=== PATIENT | female | born 1965 | race Two or more races ===

== ENCOUNTER 2020-12-10 05:46 | Day surgery (SDC) | payer OTHER ==
[~2020-12-10 05:46] MED LIST: CRESTOR20 MG PO; D3 + K2 DOTS 11 EACH PO; SYMBICORT 16010.2 GM IH; SYNTHROID100 MCG PO
[2020-12-10] MEDS ORDERED: PERCOCET 5-3251 EACH PO (08:58)
== END 2020-12-10 13:15 | disposition home or self-care (01) ==
LOC: CIR.AMB 05:46
PROVIDERS: ATTEND Obstetrics & Gynecology Gynecology
DX: D06.0 Carcinoma in situ of endocervix (principal); N84.0 Polyp of corpus uteri; Z20.822 Contact with and (suspected) exposure to COVID-19

== ENCOUNTER 2021-04-03 10:30 | Inpatient (IN) | payer OTHER ==
[~2021-04-03] VITALS: Ht 165.1 cm; Wt 68.0 kg
[~2021-04-03 10:30] MED LIST changes: +PERCOCET 5-3251 EACH PO
[2021-04-03] MEDS ORDERED: SYNTHROID125 MCG PO (12:47)
[2021-04-03] MEDS ORDERED: SYMB PO (12:48)
[2021-04-05] MEDS ORDERED: SYMBICORT 16010.2 GM (08:25)
== END 2021-04-05 10:52 | disposition home or self-care (01) | DRG 735 ==
LOC: O/R 04-04 06:17 → OB/GYN 04-04 10:30 → SURG-SUITE 04-05 08:12
PROVIDERS: ADMIT Obstetrics & Gynecology Gynecologic Oncology; ATTEND Obstetrics & Gynecology Gynecologic Oncology
PROC: 0UT94ZZ Resection of Uterus, Percutaneous Endoscopic Approach (ICD-10-PCS; 2021-04-04)
PROC: 0UT74ZZ Resection of Bilateral Fallopian Tubes, Percutaneous Endoscopic Approach (ICD-10-PCS; 2021-04-04)
PROC: 0UT24ZZ Resection of Bilateral Ovaries, Percutaneous Endoscopic Approach (ICD-10-PCS; 2021-04-04)
PROC: 0DNW4ZZ Release Peritoneum, Percutaneous Endoscopic Approach (ICD-10-PCS; 2021-04-04)
PROC: 07TC4ZZ Resection of Pelvis Lymphatic, Percutaneous Endoscopic Approach (ICD-10-PCS; principal; 2021-04-04 12:15)
DX: N72 Inflammatory disease of cervix uteri (principal); Z20.822 Contact with and (suspected) exposure to COVID-19